=== PATIENT | female | born 1940 | race African-American/Black ===

== ENCOUNTER 2016-08-05 23:06 | Inpatient (IN) | payer BC ==
--- NOTE | ~2016-08-05 | CN ---
Consultation Report [facility] [address] [facility] [place]. [address] NAME: GEETA NICOLE : 44 STATUS : ADM IN [facility]#: [id number] AGE: 76 ADM/REG DATE : 08/06/16 MR#: [id number] REPORT SERV DATE: 08/07/16 DICTATED BY: RAKESH BOWMAN DATE: 08/06/16 REPORT STATUS : Draft TRANSCRIBED BY: MODL DATE: 08/06/16 CARDIOLOGY CONSULT DATE OF CONSULTATION: REASON FOR CONSULTATION: Acute on chronic systolic heart failure. HISTORY OF PRESENT ILLNESS: Ms. Nicole is a 76-year-old female with a chronic nonischemic cardiomyopathy, LVEF 25%, and ICD in situ who has been re-admitted with acute on chronic systolic heart failure. She is discharged from the hospital several weeks ago and actually spent some time in rehab. Only 4-5 days at home, she had recurrent lower extremity edema, abdominal distention, and dyspnea. She does have a history of aortic valve stenosis status post transcatheter aortic valve replacement. Last echo in January showed preserved EF, stable TAVR, and moderate mitral and tricuspid regurgitation. She has obstructive sleep apnea and is compliant with CPAP. She has been treated with IV Bumex and is feeling better. She was hypotensive on arrival to the ER, and her losartan has been held. She is now feeling better with less shortness of breath. She has had no chest pain. She denies palpitations or syncope. She has had no ICD shocks. REVIEW OF SYSTEMS: Pertinent positives and negatives as outlined above, all else negative. PAST MEDICAL HISTORY: 1. Chronic systolic heart failure. 2. Nonischemic cardiomyopathy, LVEF 25%. 3. ICD in situ. 4. Aortic stenosis status post transcatheter aortic valve replacement. 5. Moderate mitral and tricuspid regurgitation. 6. Obesity. 7. Obstructive sleep apnea. 8. Hypertension. 9. Chronic kidney disease stage 3. 10.Left bundle branch block. MEDICATIONS: Current home medications are: 1. Losartan 50 mg daily. 2. Torsemide 40 mg twice daily. 3. Potassium supplementation. 4. Aspirin 81 mg daily. 5. Tessalon Perles. 6. Celexa. 7. Vistaril as directed. 8. Synthroid 125 mcg daily. 9. Multivitamin daily. Consultation Report [facility] [address] [place]. [address] NAME: GEETA NICOLE : 42 STATUS : ADM IN PAT#: [id number] AGE: 76 ADM/REG DATE : 08/06/16 MR#: [id number] REPORT SERV DATE: 08/07/16 DICTATED BY: RAKESH BOWMAN DATE: 08/06/16 REPORT STATUS : Draft TRANSCRIBED BY: MODL DATE: 08/06/16 10.Trazodone at bedtime as needed. 11.Zocor 80 mg at bedtime. ALLERGIES: ALLERGIES INCLUDE PENICILLIN WHICH CAUSES HIVES. SOCIAL HISTORY: She does not use tobacco products, consume alcohol, or use illegal drugs. FAMILY HISTORY: No significant family history of premature CAD, cardiomyopathy, or sudden . PHYSICAL EXAMINATION: VITALS: Temperature is afebrile, pulse is 80, respirations 16, blood pressure is 110/60. GENERAL: Well-developed female who is currently resting in bed in no acute distress. HEENT: Sclerae anicteric, mucous membranes moist and without lesions. NECK: No jugular venous distention. No hepatojugular reflux, carotid upstrokes 2+ and symmetric, there are no carotid or subclavian bruit. LUNGS: Mildly decreased breath sounds throughout. No wheezes or crackles. CARDIOVASCULAR: Regular with distant S1 and S2. No audible S3. There is a 1/6-2/6 systolic ejection murmur at the left sternal border without radiation, no parasternal lift. ABDOMEN: Obese, soft and nontender. Bowel sounds positive and normoactive. No hepatomegaly, no masses, no abdominal bruit. PULSES: Radial and dorsalis pedis pulses 2+ and symmetric. EXTREMITIES: Warm with 3+ bilateral lower extremity edema. SKIN: No clubbing or cyanosis, no rashes or lesions. IMPRESSION: 1. Acute on chronic systolic heart failure. 2. Nonischemic cardiomyopathy, EF 25%. 3. ICD in situ. 4. Aortic stenosis status post TAVR. 5. Moderate mitral tricuspid regurgitation. 6. Obesity. 7. Obstructive sleep apnea. 8. Hypertension. 9. Chronic kidney disease stage 3. PLAN: I agree with plans for IV Bumex drip for Ms. Nicole for the next 24 hours. Increased at 1 mg for 6 hours and then back to 0.5 mg to complete the 24-hour course. Close followup of electrolytes. Last echo January 2016, repeat echo pending. Question need to add metolazone to torsemide once she is off IV Bumex. Continue statin and aspirin as prescribed. ARB held due to presenting with hypotension. AEA/MODL Consultation Report [facility] [address] [place]. [address] NAME: GEETA NICOLE : 42 STATUS : ADM IN PAT#: [id number] AGE: 76 ADM/REG DATE : 08/06/16 MR#: [id number] REPORT SERV DATE: 08/07/16 DICTATED BY: RAKESH BOWMAN. DATE: 08/06/16 REPORT STATUS : Draft TRANSCRIBED BY: SHANNON DATE: 08/06/16 Rakesh Bowman M.D. / [id number] CC: Nataly Bill M.D.
--- NOTE | ~2016-08-05 | DS ---
Discharge Summary [facility] [address] [place]. [address] NAME: GEETA NICOLE : 44 STATUS : DIS IN PAT#: [id number] AGE: 76 ADM/REG DATE : 08/06/16 MR#: [id number] REPORT SERV DATE: 08/17/16 DICTATED BY: LION BROOKS DATE: 08/16/16 REPORT STATUS : Draft TRANSCRIBED BY: MODL DATE: 08/16/16 ADMISSION DATE: 08/06/2016 DISCHARGE DATE: 08/16/2016 DISCHARGE DIAGNOSES: 1. Cor pulmonale. 2. Acute on chronic systolic congestive heart failure. With an ejection fraction of 25%. 3. Nonischemic cardiomyopathy. 4. Cardiogenic shock, currently resolved. 5. History of aortic valve replacement. 6. Automatic implantable cardioverter defibrillator in the past. 7. Obstructive sleep apnea. 8. Morbid obesity. 9. Hypotension, mainly related to cardiogenic disease. 10.Pulmonary hypertension with cor pulmonale in the past. 11.Hypothyroidism. 12.History of left carotid stenosis. 13.History of right upper extremity deep venous thrombosis. 14.History of colon polyps. INVASIVE PROCEDURES DONE DURING THIS HOSPITALIZATION: None. CONSULTATIONS DURING THIS HOSPITALIZATION: Rakesh Ravi M.D. and Gilberto Livingston M.D., Ph.D, F.A.C.C. Of Cardiology. BRIEF HISTORY OF PRESENT ILLNESS: The patient is a 76-year-old white female, triaged in the emergency room on 08/05/2016 at 1959 hours for fluid buildup. The patient presented with massive volume overload, particularly affecting the legs and the hips as well as the abdomen, so she was admitted. For detailed history and physical exam, please see note dictated by Dr. Micah Payne on 08/06/2016. HOSPITAL COURSE: After being admitted to the hospital, this patient was in the intermediate care unit. Initially, seen by Dr. Perez and then transferred to the service of Dr. Fabrizio Cooney. Please refer to interim summary dictated by Dr. Cooney on 08/14/2016. I took over this patient's care on 08/15/2016. This patient was doing relatively well. She did have some hypotension, but that has been managed with midodrine. Cardiology has okayed her midodrine in the face of her nonischemic cardiomyopathy and hypotension. Her blood pressure has been in the 90s systolic to one teens systolic and that has been acceptable. This patient has no symptoms from her hypotension. Her kidney function has stabilized as well. We need to continue her diuretics, Bumex 2 mg in the morning and 1 mg in the evening as well as Aldactone. This has been explained to the patient. Her thyroid medications have been the same and has not been changed. I discussed her care with Dr. Livingston and he agrees that this patient can be discharged and followed up in the outpatient setting. Home health will be set up as well. This patient continues to remain stable otherwise and is being discharged in stable condition. Discharge Summary [address] [place]. [address] NAME: GEETA NICOLE : 44 STATUS : DIS IN PAT#: [id number] AGE: 76 ADM/REG DATE : 08/06/16 MR#: [id number] REPORT SERV DATE: 08/17/16 DICTATED BY: LION BROOKS DATE: 08/16/16 REPORT STATUS : Draft TRANSCRIBED BY: SHANNON DATE: 08/16/16 DISCHARGE DISPOSITION: Home. DISCHARGE ACTIVITY: As tolerated with home health and physical therapy. DISCHARGE DIET: Low sodium, 1800-calorie [employer] diet. DISCHARGE MEDICATIONS: Midodrine 2.5 mg three times daily, Aldactone 25 mg once daily, Bumex 2 mg in the morning and 1 mg once in the afternoon, Coreg 6.25 mg twice daily, aspirin 81 mg once daily, Celexa 20 mg once daily, trazodone 50 mg once at bedtime, levothyroxine 125 mcg once daily, multivitamins one tablet daily, losartan 25 mg one tablet daily, potassium 20 mEq once daily, simvastatin 80 mg once at bedtime, Vistaril 50 mg to 100 mg every six hours p.r.n. for itching, Tessalon Perles 100 mg three times daily p.r.n. for cough, and Zyrtec 10 mg once daily. DISCHARGE FOLLOWUP: With Dr. Gilberto Livingston in three to four weeks, with Dr. Dipesh Martinez in one week. More than 35 minutes spent planning this patient's discharge, reconciling medications, writing prescriptions, discussing hospital care, and follow up with the patient and documenting this discharge. NICOLE/SHANNON Lion Brooks M.D. / [id number] CC: Nataly Beck M.D. Wesley S. Thompson, DO
--- NOTE | ~2016-08-05 | IDS ---
Interim Discharge Summary [facility] [address] [place]. [address] NAME: GEETA NICOLE : 44 STATUS : ADM IN PAT#: [id number] AGE: 76 ADM/REG DATE : 08/06/16 MR#: [id number] REPORT SERV DATE: 08/14/16 DICTATED BY: TAMICA MCKEON DATE: 08/14/16 REPORT STATUS : Draft TRANSCRIBED BY: MODAniket DATE: 08/14/16 ADMISSION DATE: 08/06/2016 DISCHARGE DATE: Date of interim discharge summary as well as progress note is going to be 08/14/2016. SUBJECTIVE: The patient wants to go home, but is anxiously awaiting further euvolemia. OBJECTIVE: VITAL SIGNS: 120/65, 95% on room air, 20 respirations from 18, 94 pulse, 97.6 temperature. GENERAL: No acute distress. HEENT: PERRLA. No scleral icterus. CARDIOVASCULAR: Regular S1, S2. 1/6 systolic murmur, left sternal border. ABDOMEN: Obese, soft, nontender, nondistended. EXTREMITIES: About 1+ pitting edema bilaterally. NEUROLOGIC: GCS 15. A and O x4. LABORATORY DATA: Today, she has a white count that is 4.4 from 5.4, hemoglobin 11.3 from 11.4, platelets are 175,000 from 172,000. Sodium 147, potassium 3.6, chloride 98, bicarb 31, creatinine 1.41 from 1.59 from 1.62, sugar is going to be 98. BNP 1151 from 1544. ASSESSMENT AND PLAN: A 76-year-old female with known history of nonischemic cardiomyopathy, LVEF 25%, ICD in situ. Known history of aortic stenosis, status post TAVR, moderate mitral regurgitation, tricuspid regurgitation, obesity, obstructive sleep apnea, current chronic kidney disease 3, left bundle-branch block, and hypertension. The patient comes in with acute on chronic systolic heart failure. She was discharged several weeks prior to coming in. Went to rehab. She was only four to five days at home, then had recurrent lower extremity edema, abdominal distention, shortness of breath. Placed on IV Bumex drip. Her losartan was held initially due to hypotension. She was diuresed very effectively on Bumex drip to Bumex to IV q.8. She has been negative 1 to 2 L every single day while being on Milrinone drip with reduction of Milrinone drip. We will defer to [facility] and their expertise when the patient is ready for discharge. I did educate the patient extensively on 2-g sodium restricted diet, avoiding fried foods, not adding salt to her diet. The patient had midodrine with some nonsustained ventricular tachycardia, midodrine for her hypotension with low EF, low cardiac output. Evaluate for any other anasarca associated etiology. She has very little proteinuria. Her liver does not suggest any hepatitis more likely just pure heart failure. Does not appear to have any sepsis or hypotension. As a result, she was placed on beta-blockade for nonsustained ventricular tachycardia. The patient was added on with Spiriva for her clinical chronic obstructive pulmonary disease. Could consider trying to discontinue the midodrine prior to discharge to see if the patient would tolerate lack of midodrine and blood pressure support as that can result in nonsustained ventricular tachycardia arrhythmia risk. See rest of my orders. All questions were answered. It took well over 30 minutes to do. Interim Discharge Summary [address] [place]. [address] NAME: GEETA NICOLE : 42 STATUS : ADM IN [facility]#: [id number] AGE: 76 ADM/REG DATE : 08/06/16 MR#: [id number] REPORT SERV DATE: 08/14/16 DICTATED BY: TAMICA MCKEON DATE: 08/14/16 REPORT STATUS : Draft TRANSCRIBED BY: SHANNON DATE: 08/14/16 DOTTY/SHANNON Tamica Mckeon DO / [id number] CC: DO Dipesh Patel M.D.
--- NOTE | ~2016-08-05 | HP ---
History And Physical [place] [id number] [facility] [place]. [address] NAME: GEETA NICOLE : 42 STATUS : ADM IN [facility]#: [id number] AGE: 76 ADM/REG DATE : 08/06/16 MR#: [id number] REPORT SERV DATE: 08/06/16 DICTATED BY: JULIEN HERR DATE: 08/06/16 REPORT STATUS : Draft TRANSCRIBED BY: MODL DATE: 08/06/16 DATE OF ADMISSION: 08/06/2016 CHIEF COMPLAINT: A 76-year-old female, presenting with massive volume overload. HISTORY OF PRESENT ILLNESS: The patient's history was obtained through careful interview with the patient and sister, coupled with review of [facility] and [facility] medical records. The patient over the last several weeks has had massive volume overload particularly affecting her legs with a tight painful lower extremity edema extending into her hips and also causing distention of her abdomen with abdominal wall edema. She has been given increased dose of her outpatient diuretics, but with no help. She describes leg and abdominal wall pain related to swelling. But her main pain has been a bedsore in her sacrum and aching quality, 5/10 severity. When she was last hospitalized earlier in 2017, she had severe volume overload, but also developed hypotension necessitating a central line and pressors, but also had to be intubated and according to the patient and family, it was quite dramatic hospital stay. She was discharged for rehabilitation the [facility] and she has only been home about 1/2 weeks from there. She has had a cough productive of a slight light sputum. She has had wheezing, but she denies any dyspnea on exertion. She does have orthopnea with difficulty breathing at night times. Her sinuses have been draining a "brown" discharge. She has had good urine flow. No change of bowel habit. No fevers or chills. No dizziness. REVIEW OF SYSTEMS: Otherwise 14-point review of systems was obtained and was negative. PAST MEDICAL HISTORY: 1. Systolic congestive heart failure, considered nonischemic cardiomyopathy with ejection fraction of 25%, followed by Dr. Livingston. 2. Pulmonary hypertension with cor pulmonale. 3. Chronic kidney disease, stage III, baseline creatinine of 1.4 to 1.8. 4. Sacral decubitus ulcer. 5. Urinary tract infection, previously with Pseudomonas. 6. Hypothyroidism. 7. Hypotension, chronically. 8. Aortic valve replacement. 9. AICD/pacer placement for ventricular tachycardia. 10.Obstructive sleep apnea, on CPAP. 11.Morbid obesity with body mass index of 55. History And Physical [address] [place]. [address] NAME: GEETA NICOLE : 42 STATUS : ADM IN [facility]#: [id number] AGE: 76 ADM/REG DATE : 08/06/16 MR#: [id number] REPORT SERV DATE: 08/06/16 DICTATED BY: JULIEN HERR DATE: 08/06/16 REPORT STATUS : Draft TRANSCRIBED BY: SHANNON DATE: 08/06/16 12.Left carotid stenosis. 13.Positive RUTHIE with 1 to 320 titer nucleolar. 14.Right upper extremity DVT. 15.Colon polyps, seen by Dr. Emery. PAST SURGICAL HISTORY: 1. Aortic valve replacement. 2. AICD/pacer placement. 3. Hysterectomy. 4. Cholecystectomy. 5. Bilateral knee surgery. ALLERGIES: PENICILLIN. SOCIAL HISTORY: Drinks occasional alcohol. No tobacco abuse. She is a . Lives alone. She has two sons. 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 She is a [employer]. FAMILY HISTORY: No known familiar pattern of cardiac disease. CURRENT MEDICATIONS: Include aspirin 81 mg daily, Tessalon Perles, Zyrtec 10 mg as needed, Celexa 20 mg daily, Vistaril p.r.n., Synthroid 125 mcg daily, Cozaar 50 mg p.o. daily, multivitamin daily, potassium 20 mEq daily, Zocor 80 mg daily, Demadex 40 mg p.o. b.i.d., trazodone 50 mg p.o. at bedtime. PHYSICAL EXAMINATION: VITAL SIGNS: Temperature 97.5, pulse 90, blood pressure 116/71, but has dropped to as low as 85/49 here in the emergency department, respiratory rate 16, O2 saturation 91% on room air. GENERAL: A chronically ill-appearing female, in slight distress secondary to discomfort from volume overload. HEENT: Pupils equal, round, and reactive to light. No conjunctival pallor. No scleral icterus. Nares are patent. Oropharynx is clear of obstruction. Moist mucous membranes. NECK: Trachea midline. No thyromegaly. LYMPH: No cervical lymphadenopathy. No supraclavicular lymphadenopathy. RESPIRATORY: Mild wet crackles at the base of lungs. No overt dense rales. No wheezes. The patient has a labored respiratory effort however. CARDIOVASCULAR: Regular rate and rhythm. Paced on the monitor. No murmurs, rubs, or gallops. The patient has massive anasarca with deeply tight pitting edema of lower extremities extending all the way up into the hips and pelvis area. She also has pitting edema of her abdominal wall. Abdomen is quite distended by exam, also a central pattern of morbid obesity, nontender throughout however. No hepatosplenomegaly is appreciated. DERMATOLOGICAL: Warm and dry extremities. No pallor. No cyanosis. PSYCHIATRIC: Normal affect. Good mood. Alert and oriented x3. LABORATORY DATA: Brain natriuretic peptide 3202. Troponin 0.05. INR 1.4. White blood count 4.7, hemoglobin 11, hematocrit 35, platelets 148. MCV of 100.9. Sodium 142, potassium 3.4, chloride 101, bicarb 30, BUN 30, creatinine 1.81, glucose 107. History And Physical [address] [address] NAME: GEETA NICOLE : 42 STATUS : ADM IN [facility]#: [id number] AGE: 76 ADM/REG DATE : 08/06/16 MR#: [id number] REPORT SERV DATE: 08/06/16 DICTATED BY: JULIEN HERR DATE: 08/06/16 REPORT STATUS : Draft TRANSCRIBED BY: SHANNON DATE: 08/06/16 STUDIES: 1. Chest x-ray by my own evaluation shows cardiomegaly, pulmonary vascular congestion. 2. EKG by my own evaluation shows atrial ventricular pacing. ASSESSMENT AND PLAN: 1. Cor pulmonale exacerbation with systolic congestive heart failure exacerbation. Ejection fraction of 25%. Recheck an echocardiogram. Place on IV Bumex drip. Hold ARB and beta-mehrdad secondary to hypotension. The patient had such a severe presentation during her last hospitalization including intubation and shock that I believe an initial admit to the [facility] is appropriate. 2. Shock. Blood pressure stable now at 116/71, but drops to 85/49, approximately and the patient reports being very sensitive to diuretics. We will hold ARB. Try midodrine scheduled doses and admit to the IMCU initially. 3. Aortic valve replacement. Check an echocardiogram. 4. Pacemaker. We will interrogate. 5. Obstructive sleep apnea. Continue CPAP. 6. Sacral decubitus ulcer, turn q.2 hours. Obtain a Wound Care consult. 7. Morbid obesity. Body mass index of 55. KPL/MODL Julien Herr M.D. / [id number] CC: River Perez M.D. Dipesh Martinez M.D. Gilberto Livingston M.D., Ph.D, F.A.C.C.
[2016-08-05 21:06] LABS: BASOPHILS 1.1 %; BASOPHILS ABSOLUTE 0.05 10/3/uL (0.0-0.16); EOSINOPHILS 5.2 %; EOSINOPHILS ABSOLUTE 0.24 10/3/uL (0.0-0.53); ER CBC TAT 0 Hrs 05 Mins; HEMOGLOBIN 11.5 g/dL (12.0-16.0); IMMATURE GRANULOCYTES 0.2 %; IMMATURE GRANULOCYTES ABSOLUTE 0.01 10/3/uL (0.0-0.11); LYMPHOCYTES 31.8 %; LYMPHOCYTES ABSOLUTE 1.48 10/3/uL (0.67-4.30); MEAN CORPUS HGB CONC 33.1 g/dL (32.0-36.0); MEAN CORPUSCULAR HEMOGLOB 33.4 pg (26.0-34.0); MEAN CORPUSCULAR VOLUME 100.9 fL (80-100); MEAN PLATELET VOLUME 10.2 fL (9.2-13.0); MONOCYTES 11.8 %; MONOCYTES ABSOLUTE 0.55 10/3/uL (0.21-1.20); NEUTROPHILS 49.9 %; NEUTROPHILS ABSOLUTE 2.33 10/3/uL (2.02-8.40); RED CELL COUNT 3.44 10/6/uL (4.0-5.6); WHITE BLOOD CELLS 4.7 10/3/uL (4.5-10.5)
[2016-08-05 21:07] LABS: HEMATOCRIT 34.7 % (36.0-48.0); MANUAL DIFF NO %; PLATELET COUNT 148 10/3/uL (150-400)
[2016-08-05 21:14] LABS: INTERNATIONAL NORMAL RATI 1.4 UNITS (-); PROTIME (NOT ORD) 17.3 SEC (12.0-14.5)
[2016-08-05 21:21] LABS: BUN (BLOOD UREA NITROGEN) 30 MG/DL (6-23); CALCIUM, SERUM 9.3 MG/DL (8.5-10.4); CHLORIDE, SERUM 101 MMOL/L (96-112); CO2 (CARBON DIOXIDE) 30 MMOL/L (24-34); CREATININE 1.81 MG/DL (0.55-1.02); GFR AFRICAN AMERICAN 31 ML/MIN (>=60); GFR NON AFRICAN AMERICAN 27 ML/MIN (>=60); GLUCOSE, SERUM 107 MG/DL (60-99); POTASSIUM, SERUM 3.4 MMOL/L (3.5-5.3); SODIUM, SERUM 142 MMOL/L (135-148)
[2016-08-05 21:22] LABS: CHEST PAIN PROFILE TAT 0 Hrs 21 Mins; TROPONIN I 0.05 NG/ML (<0.05)
[~2016-08-05 23:06] MED LIST: ASAB PO; CALTRA600D PO; CELEXA20 PO; CO Q-1050 MG PO; COREG12 PO; COREG25 PO; COREG6 PO; COZ50 PO; DEMA20 PO; FLEXERIL5 MG PO; GLUCPH8 PO; IRON325 MG PO; KLONO5 PO; KLOR-CON M2020 MEQ PO; KLOR-CON20 MEQ PO; LEVOTHROID150 MCG PO; LEVOTHROID88 MCG PO; LEVOTHYROXIN150 MCG PO; LEVOTHYROXIN50 MCG PO; MULTIVITAMI1 PO; NEUR300 PO; NORCO1 TA1 PO; PLAVIX PO; SYN125 PO; TRAZ50 PO; VIST50 PO; VITAMIN D1000 UNI1 PO; VITRON-C; ZESTORETIC1 TA1 PO; ZOCOR40 PO; ZOCOR80 MG PO
[2016-08-05] MEDS ORDERED: TESS PO (23:32)
[2016-08-05] MEDS ORDERED: ZYRTEC ALLGY10 MG PO (23:36)
[2016-08-06 05:44] LABS: BASOPHILS 0.9 %; BASOPHILS ABSOLUTE 0.04 10/3/uL (0.0-0.16); EOSINOPHILS 6.9 %; EOSINOPHILS ABSOLUTE 0.32 10/3/uL (0.0-0.53); HEMATOCRIT 33.7 % (36.0-48.0); IMMATURE GRANULOCYTES 0.2 %; IMMATURE GRANULOCYTES ABSOLUTE 0.01 10/3/uL (0.0-0.11); LYMPHOCYTES 27.9 %; LYMPHOCYTES ABSOLUTE 1.29 10/3/uL (0.67-4.30); MEAN CORPUS HGB CONC 32.6 g/dL (32.0-36.0); MEAN CORPUSCULAR HEMOGLOB 32.7 pg (26.0-34.0); MEAN CORPUSCULAR VOLUME 100.3 fL (80-100); MEAN PLATELET VOLUME 10.1 fL (9.2-13.0); MONOCYTES ABSOLUTE 0.51 10/3/uL (0.21-1.20); NEUTROPHILS 53.1 %; NEUTROPHILS ABSOLUTE 2.45 10/3/uL (2.02-8.40); PLATELET COUNT 152 10/3/uL (150-400); RBC DISTRIBUTION WIDTH 15.2 % (12.0-16.0); RED CELL COUNT 3.36 10/6/uL (4.0-5.6); WHITE BLOOD CELLS 4.6 10/3/uL (4.5-10.5)
[2016-08-06 05:49] LABS: MANUAL DIFF NO %
[2016-08-06 05:52] LABS: INTERNATIONAL NORMAL RATI 1.5 UNITS (-); PARTIAL THROMBO TIME 32.9 SEC (22.5-37.2); PROTIME (NOT ORD) 17.7 SEC (12.0-14.5)
[2016-08-06 06:08] LABS: A/G RATIO 0.7 (0.7-1.9); ALKALINE PHOSPHATASE 135 U/L (45-117); BUN (BLOOD UREA NITROGEN) 30 MG/DL (6-23); CALCIUM, SERUM 9.5 MG/DL (8.5-10.4); CHLORIDE, SERUM 103 MMOL/L (96-112); CO2 (CARBON DIOXIDE) 28 MMOL/L (24-34); CPK (IF ELEVATED MB BANDS) 147 U/L (0-200); GFR AFRICAN AMERICAN 34 ML/MIN (>=60); GFR NON AFRICAN AMERICAN 29 ML/MIN (>=60); GLOBULIN 4.3 G/DL (2.5-4.1); GLUCOSE, SERUM 111 MG/DL (60-99); POTASSIUM, SERUM 3.1 MMOL/L (3.5-5.3); SGOT(AST) 41 U/L (5-40); SGPT(ALT) 24 U/L (5-65); SODIUM, SERUM 144 MMOL/L (135-148); TOTAL BILIRUBIN 1.8 MG/DL (0-1.2); TOTAL PROTEIN 7.3 G/DL (6.0-8.5); TROPONIN I 0.05 NG/ML (<0.05)
[2016-08-06 09:51] LABS: FREE T4 1.11 NG/DL (0.76-1.46)
[2016-08-07 05:04] LABS: BASOPHILS 1.1 %; BASOPHILS ABSOLUTE 0.05 10/3/uL (0.0-0.16); EOSINOPHILS 5.7 %; EOSINOPHILS ABSOLUTE 0.27 10/3/uL (0.0-0.53); HEMATOCRIT 35.5 % (36.0-48.0); HEMOGLOBIN 11.7 g/dL (12.0-16.0); IMMATURE GRANULOCYTES 0.2 %; IMMATURE GRANULOCYTES ABSOLUTE 0.01 10/3/uL (0.0-0.11); LYMPHOCYTES 25.6 %; LYMPHOCYTES ABSOLUTE 1.22 10/3/uL (0.67-4.30); MEAN CORPUSCULAR HEMOGLOB 33.3 pg (26.0-34.0); MEAN CORPUSCULAR VOLUME 101.1 fL (80-100); MONOCYTES 14.1 %; MONOCYTES ABSOLUTE 0.67 10/3/uL (0.21-1.20); NEUTROPHILS 53.3 %; NEUTROPHILS ABSOLUTE 2.54 10/3/uL (2.02-8.40); PLATELET COUNT 162 10/3/uL (150-400); RBC DISTRIBUTION WIDTH 15.2 % (12.0-16.0); RED CELL COUNT 3.51 10/6/uL (4.0-5.6); WHITE BLOOD CELLS 4.8 10/3/uL (4.5-10.5)
[2016-08-07 05:10] LABS: MANUAL DIFF NO %
[2016-08-07 05:18] LABS: BUN (BLOOD UREA NITROGEN) 27 MG/DL (6-23); CALCIUM, SERUM 9.3 MG/DL (8.5-10.4); CHLORIDE, SERUM 104 MMOL/L (96-112); CO2 (CARBON DIOXIDE) 30 MMOL/L (24-34); CREATININE 1.67 MG/DL (0.55-1.02); GFR AFRICAN AMERICAN 35 ML/MIN (>=60); GFR NON AFRICAN AMERICAN 30 ML/MIN (>=60); GLUCOSE, SERUM 111 MG/DL (60-99); POTASSIUM, SERUM 3.3 MMOL/L (3.5-5.3); SODIUM, SERUM 144 MMOL/L (135-148)
[2016-08-08 08:39] LABS: BUN (BLOOD UREA NITROGEN) 25 MG/DL (6-23); CALCIUM, SERUM 9.4 MG/DL (8.5-10.4); CHLORIDE, SERUM 101 MMOL/L (96-112); CO2 (CARBON DIOXIDE) 33 MMOL/L (24-34); CREATININE 1.64 MG/DL (0.55-1.02); GFR AFRICAN AMERICAN 35 ML/MIN (>=60); GFR NON AFRICAN AMERICAN 30 ML/MIN (>=60); GLUCOSE, SERUM 98 MG/DL (60-99); POTASSIUM, SERUM 3.8 MMOL/L (3.5-5.3); SODIUM, SERUM 144 MMOL/L (135-148)
[2016-08-08 08:43] LABS: PHOSPHORUS, SERUM 3.2 MG/DL (2.5-4.5)
[2016-08-08 16:28] LABS: PROCALCITONIN 0.05 ng/mL (<0.5)
[2016-08-09 07:33] LABS: ALKALINE PHOSPHATASE 105 U/L (45-117); BUN (BLOOD UREA NITROGEN) 26 MG/DL (6-23); CALCIUM, SERUM 9.5 MG/DL (8.5-10.4); CHLORIDE, SERUM 102 MMOL/L (96-112); CO2 (CARBON DIOXIDE) 31 MMOL/L (24-34); CREATININE 1.58 MG/DL (0.55-1.02); DIRECT BILIRUBIN 1.3 MG/DL (0.0-0.4); GFR AFRICAN AMERICAN 37 ML/MIN (>=60); GFR NON AFRICAN AMERICAN 32 ML/MIN (>=60); GLUCOSE, SERUM 90 MG/DL (60-99); INDIRECT BILIRUBIN(NOT ORDER) 1.7 MG/DL (0.1-0.9); PHOSPHORUS, SERUM 2.9 MG/DL (2.5-4.5); POTASSIUM, SERUM 3.5 MMOL/L (3.5-5.3); SGOT(AST) 33 U/L (5-40); SGPT(ALT) 21 U/L (5-65); SODIUM, SERUM 143 MMOL/L (135-148); TOTAL PROTEIN 7.1 G/DL (6.0-8.5)
[2016-08-09 10:38] LABS: CREATININE RANDOM UR 46.9 MG/DL; UR PROTEIN/CREAT RATIO 0.3 (< 0.2)
[2016-08-11 07:54] LABS: BASOPHILS ABSOLUTE 0.06 10/3/uL (0.0-0.16); EOSINOPHILS 6.4 %; EOSINOPHILS ABSOLUTE 0.39 10/3/uL (0.0-0.53); HEMATOCRIT 34.4 % (36.0-48.0); HEMOGLOBIN 11.4 g/dL (12.0-16.0); IMMATURE GRANULOCYTES 0.2 %; IMMATURE GRANULOCYTES ABSOLUTE 0.01 10/3/uL (0.0-0.11); LYMPHOCYTES 26.5 %; LYMPHOCYTES ABSOLUTE 1.62 10/3/uL (0.67-4.30); MEAN CORPUS HGB CONC 33.1 g/dL (32.0-36.0); MEAN CORPUSCULAR HEMOGLOB 33.4 pg (26.0-34.0); MEAN CORPUSCULAR VOLUME 100.9 fL (80-100); MEAN PLATELET VOLUME 9.9 fL (9.2-13.0); MONOCYTES 13.7 %; MONOCYTES ABSOLUTE 0.84 10/3/uL (0.21-1.20); NEUTROPHILS 52.2 %; PLATELET COUNT 183 10/3/uL (150-400); RBC DISTRIBUTION WIDTH 15.5 % (12.0-16.0); RED CELL COUNT 3.41 10/6/uL (4.0-5.6); WHITE BLOOD CELLS 6.1 10/3/uL (4.5-10.5)
[2016-08-11 07:56] LABS: MANUAL DIFF NO %
[2016-08-11 08:06] LABS: CALCIUM, SERUM 9.6 MG/DL (8.5-10.4); CHLORIDE, SERUM 102 MMOL/L (96-112); CO2 (CARBON DIOXIDE) 34 MMOL/L (24-34); CREATININE 1.59 MG/DL (0.55-1.02); GFR AFRICAN AMERICAN 37 ML/MIN (>=60); GFR NON AFRICAN AMERICAN 32 ML/MIN (>=60); GLUCOSE, SERUM 101 MG/DL (60-99); PHOSPHORUS, SERUM 2.4 MG/DL (2.5-4.5); POTASSIUM, SERUM 3.7 MMOL/L (3.5-5.3); SODIUM, SERUM 142 MMOL/L (135-148)
[2016-08-11 08:08] LABS: BUN (BLOOD UREA NITROGEN) 21 MG/DL (6-23)
[2016-08-12 06:27] LABS: BUN (BLOOD UREA NITROGEN) 23 MG/DL (6-23); CALCIUM, SERUM 8.8 MG/DL (8.5-10.4); CHLORIDE, SERUM 100 MMOL/L (96-112); CO2 (CARBON DIOXIDE) 35 MMOL/L (24-34); CREATININE 1.62 MG/DL (0.55-1.02); GFR AFRICAN AMERICAN 36 ML/MIN (>=60); GFR NON AFRICAN AMERICAN 31 ML/MIN (>=60); GLUCOSE, SERUM 97 MG/DL (60-99); PHOSPHORUS, SERUM 2.8 MG/DL (2.5-4.5); POTASSIUM, SERUM 3.4 MMOL/L (3.5-5.3); SODIUM, SERUM 141 MMOL/L (135-148)
[2016-08-13 07:20] LABS: BASOPHILS 1.1 %; BASOPHILS ABSOLUTE 0.06 10/3/uL (0.0-0.16); EOSINOPHILS 9.3 %; HEMATOCRIT 34.1 % (36.0-48.0); HEMOGLOBIN 11.4 g/dL (12.0-16.0); IMMATURE GRANULOCYTES 0.2 %; IMMATURE GRANULOCYTES ABSOLUTE 0.01 10/3/uL (0.0-0.11); LYMPHOCYTES 28.2 %; LYMPHOCYTES ABSOLUTE 1.51 10/3/uL (0.67-4.30); MEAN CORPUS HGB CONC 33.4 g/dL (32.0-36.0); MEAN CORPUSCULAR HEMOGLOB 32.9 pg (26.0-34.0); MEAN CORPUSCULAR VOLUME 98.6 fL (80-100); MEAN PLATELET VOLUME 9.5 fL (9.2-13.0); MONOCYTES 11.8 %; MONOCYTES ABSOLUTE 0.63 10/3/uL (0.21-1.20); NEUTROPHILS 49.4 %; NEUTROPHILS ABSOLUTE 2.64 10/3/uL (2.02-8.40); PLATELET COUNT 172 10/3/uL (150-400); RBC DISTRIBUTION WIDTH 15.1 % (12.0-16.0); RED CELL COUNT 3.46 10/6/uL (4.0-5.6); WHITE BLOOD CELLS 5.4 10/3/uL (4.5-10.5)
[2016-08-13 07:23] LABS: MANUAL DIFF NO %
[2016-08-13 07:32] LABS: BUN (BLOOD UREA NITROGEN) 21 MG/DL (6-23); CALCIUM, SERUM 9.1 MG/DL (8.5-10.4); CHLORIDE, SERUM 97 MMOL/L (96-112); CO2 (CARBON DIOXIDE) 31 MMOL/L (24-34); CREATININE 1.59 MG/DL (0.55-1.02); GFR AFRICAN AMERICAN 37 ML/MIN (>=60); GFR NON AFRICAN AMERICAN 32 ML/MIN (>=60); GLUCOSE, SERUM 94 MG/DL (60-99); PHOSPHORUS, SERUM 2.9 MG/DL (2.5-4.5); POTASSIUM, SERUM 3.5 MMOL/L (3.5-5.3); SODIUM, SERUM 139 MMOL/L (135-148)
[2016-08-14 08:05] LABS: BASOPHILS 1.1 %; BASOPHILS ABSOLUTE 0.05 10/3/uL (0.0-0.16); EOSINOPHILS 10.9 %; EOSINOPHILS ABSOLUTE 0.48 10/3/uL (0.0-0.53); HEMATOCRIT 35.1 % (36.0-48.0); HEMOGLOBIN 11.3 g/dL (12.0-16.0); LYMPHOCYTES 30.1 %; LYMPHOCYTES ABSOLUTE 1.32 10/3/uL (0.67-4.30); MEAN CORPUS HGB CONC 32.2 g/dL (32.0-36.0); MEAN CORPUSCULAR HEMOGLOB 32.8 pg (26.0-34.0); MEAN PLATELET VOLUME 9.8 fL (9.2-13.0); MONOCYTES 17.3 %; MONOCYTES ABSOLUTE 0.76 10/3/uL (0.21-1.20); NEUTROPHILS 40.6 %; NEUTROPHILS ABSOLUTE 1.78 10/3/uL (2.02-8.40); PLATELET COUNT 175 10/3/uL (150-400); RBC DISTRIBUTION WIDTH 15.1 % (12.0-16.0); RED CELL COUNT 3.45 10/6/uL (4.0-5.6); WHITE BLOOD CELLS 4.4 10/3/uL (4.5-10.5)
[2016-08-14 08:06] LABS: MEAN CORPUSCULAR VOLUME 101.7 fL (80-100)
[2016-08-14 09:51] LABS: BUN (BLOOD UREA NITROGEN) 19 MG/DL (6-23); CALCIUM, SERUM 9.1 MG/DL (8.5-10.4); CHLORIDE, SERUM 98 MMOL/L (96-112); CO2 (CARBON DIOXIDE) 31 MMOL/L (24-34); CREATININE 1.41 MG/DL (0.55-1.02); GFR AFRICAN AMERICAN 42 ML/MIN (>=60); GFR NON AFRICAN AMERICAN 37 ML/MIN (>=60); GLUCOSE, SERUM 98 MG/DL (60-99); POTASSIUM, SERUM 3.6 MMOL/L (3.5-5.3); SODIUM, SERUM 140 MMOL/L (135-148)
[2016-08-15 06:37] LABS: BASOPHILS 1.1 %; BASOPHILS ABSOLUTE 0.05 10/3/uL (0.0-0.16); EOSINOPHILS 9.5 %; EOSINOPHILS ABSOLUTE 0.42 10/3/uL (0.0-0.53); HEMATOCRIT 35.4 % (36.0-48.0); HEMOGLOBIN 11.5 g/dL (12.0-16.0); IMMATURE GRANULOCYTES 0.2 %; IMMATURE GRANULOCYTES ABSOLUTE 0.01 10/3/uL (0.0-0.11); LYMPHOCYTES 30.6 %; LYMPHOCYTES ABSOLUTE 1.36 10/3/uL (0.67-4.30); MANUAL DIFF NO %; MEAN CORPUS HGB CONC 32.5 g/dL (32.0-36.0); MEAN CORPUSCULAR HEMOGLOB 32.6 pg (26.0-34.0); MEAN CORPUSCULAR VOLUME 100.3 fL (80-100); MEAN PLATELET VOLUME 10.1 fL (9.2-13.0); MONOCYTES 11.3 %; NEUTROPHILS 47.3 %; PLATELET COUNT 194 10/3/uL (150-400); RBC DISTRIBUTION WIDTH 14.9 % (12.0-16.0); RED CELL COUNT 3.53 10/6/uL (4.0-5.6); WHITE BLOOD CELLS 4.4 10/3/uL (4.5-10.5)
[2016-08-15 06:51] LABS: ALBUMIN 3.1 G/DL (3.5-5.0); CALCIUM, SERUM 9.3 MG/DL (8.5-10.4); CHLORIDE, SERUM 99 MMOL/L (96-112); CO2 (CARBON DIOXIDE) 31 MMOL/L (24-34); CREATININE 1.54 MG/DL (0.55-1.02); GFR AFRICAN AMERICAN 38 ML/MIN (>=60); GFR NON AFRICAN AMERICAN 33 ML/MIN (>=60); GLUCOSE, SERUM 99 MG/DL (60-99); PHOSPHORUS, SERUM 2.8 MG/DL (2.5-4.5); POTASSIUM, SERUM 3.6 MMOL/L (3.5-5.3); SODIUM, SERUM 138 MMOL/L (135-148)
[2016-08-15 06:55] LABS: BUN (BLOOD UREA NITROGEN) 23 MG/DL (6-23)
[2016-08-16 07:06] LABS: BASOPHILS 1.3 %; BASOPHILS ABSOLUTE 0.06 10/3/uL (0.0-0.16); EOSINOPHILS 7.6 %; EOSINOPHILS ABSOLUTE 0.36 10/3/uL (0.0-0.53); HEMATOCRIT 36.6 % (36.0-48.0); IMMATURE GRANULOCYTES 0.2 %; IMMATURE GRANULOCYTES ABSOLUTE 0.01 10/3/uL (0.0-0.11); LYMPHOCYTES 37.7 %; LYMPHOCYTES ABSOLUTE 1.79 10/3/uL (0.67-4.30); MEAN CORPUS HGB CONC 32.8 g/dL (32.0-36.0); MEAN CORPUSCULAR HEMOGLOB 32.6 pg (26.0-34.0); MEAN CORPUSCULAR VOLUME 99.5 fL (80-100); MEAN PLATELET VOLUME 10.5 fL (9.2-13.0); MONOCYTES 10.1 %; MONOCYTES ABSOLUTE 0.48 10/3/uL (0.21-1.20); NEUTROPHILS 43.1 %; NEUTROPHILS ABSOLUTE 2.05 10/3/uL (2.02-8.40); PLATELET COUNT 206 10/3/uL (150-400); RBC DISTRIBUTION WIDTH 14.8 % (12.0-16.0); RED CELL COUNT 3.68 10/6/uL (4.0-5.6); WHITE BLOOD CELLS 4.8 10/3/uL (4.5-10.5)
[2016-08-16 07:07] LABS: MANUAL DIFF NO %
[2016-08-16 07:19] LABS: ALBUMIN 3.3 G/DL (3.5-5.0); BUN (BLOOD UREA NITROGEN) 26 MG/DL (6-23); CALCIUM, SERUM 9.1 MG/DL (8.5-10.4); CHLORIDE, SERUM 96 MMOL/L (96-112); CO2 (CARBON DIOXIDE) 29 MMOL/L (24-34); CREATININE 1.72 MG/DL (0.55-1.02); GFR AFRICAN AMERICAN 33 ML/MIN (>=60); GFR NON AFRICAN AMERICAN 29 ML/MIN (>=60); GLUCOSE, SERUM 108 MG/DL (60-99); PHOSPHORUS, SERUM 3.3 MG/DL (2.5-4.5); POTASSIUM, SERUM 3.9 MMOL/L (3.5-5.3); SODIUM, SERUM 136 MMOL/L (135-148)
[2016-08-16] MEDS ORDERED: BUM2 PO (10:56)
[2016-08-16] MEDS ORDERED: COREG6 PO (10:57)
[2016-08-16] MEDS ORDERED: SPIRO25 PO (10:59)
[2016-08-16] MEDS ORDERED: PROAM25 PO (10:59)
[2017-02-05] MEDS ORDERED: WELLSR150 PO (17:11)
[2017-02-05] MEDS ORDERED: MIRALAX POWDER1 PKT PO (17:12)
[2017-02-05] MEDS ORDERED: Z100 PO (17:13)
[2017-02-05] MEDS ORDERED: Z5 PO (17:13)
[2017-02-05] MEDS ORDERED: KLOR-CON M2020 MEQ PO (17:15)
[2017-02-05] MEDS ORDERED: TESS PO (17:17)
[2017-02-05] MEDS ORDERED: METANX PO (17:17)
== END 2016-08-16 13:09 | disposition home health service (06) | DRG 291 ==
LOC: ER 23:06 → IMCU 08-06 00:14 → 6NO 08-07 16:20
PROVIDERS: Emergency Medicine; Hospitalist; Internal Medicine; Internal Medicine Cardiovascular Disease
PROC: 4B02XTZ Measurement of Cardiac Defibrillator, External Approach (ICD-10-PCS; principal; 2016-08-06)
DX: I13.0 Hypertensive heart and chronic kidney disease with heart failure and stage 1 through stage 4 chronic kidney disease, or unspecified chronic kidney disease (principal); L89.153 Pressure ulcer of sacral region, stage 3; R57.0 Cardiogenic shock; I47.2 Ventricular tachycardia; Z68.43 Body mass index [BMI] 50.0-59.9, adult; N18.3 Chronic kidney disease, stage 3 (moderate); I27.2 Other secondary pulmonary hypertension; I42.8 Other cardiomyopathies; I95.89 Other hypotension; E66.01 Morbid (severe) obesity due to excess calories; I50.23 Acute on chronic systolic (congestive) heart failure; N39.0 Urinary tract infection, site not specified; I08.1 Rheumatic disorders of both mitral and tricuspid valves; J44.9 Chronic obstructive pulmonary disease, unspecified; Z95.810 Presence of automatic (implantable) cardiac defibrillator; Z88.0 Allergy status to penicillin; Z86.010 Personal history of colon polyps; I65.22 Occlusion and stenosis of left carotid artery; Z86.718 Personal history of other venous thrombosis and embolism; E03.9 Hypothyroidism, unspecified; Z90.710 Acquired absence of both cervix and uterus; Z95.2 Presence of prosthetic heart valve; Z79.82 Long term (current) use of aspirin; Z77.22 Contact with and (suspected) exposure to environmental tobacco smoke (acute) (chronic)
CPT/HCPCS: 71010; 71020; 80048; 80053; 80069; 80076; 81001; 82533; 82550; 82570; 82962; 83735; 83880; 84100; 84145; 84156; 84439; 84443; 84484; 85025; 85610; 85730; 87641; 93005; 94660; 97110-GP; 97116-GP; 97162-GP; 97166-GO; 97530-GO; 97530-GP; 97535-GO; 99291; A9270-GY; J2260

== ENCOUNTER 2016-10-07 23:42 | Inpatient (IN) | payer BC ==
--- NOTE | ~2016-10-07 | CN ---
Consultation Report [facility] [id number] [facility] [address] [place]. [address] NAME: GEETA NICOLE : 44 STATUS : ADM Tamera PAT#: [id number] AGE: 76 ADM/REG DATE : 10/07/16 MR#: [id number] REPORT SERV DATE: 10/08/16 DICTATED BY: DAVID RICHARDSON DATE: 10/08/16 REPORT STATUS : Draft TRANSCRIBED BY: MODL DATE: 10/08/16 CARDIOLOGY CONSULTATION DATE OF CONSULTATION: REASON FOR CONSULTATION: Congestive heart for exacerbation. HISTORY OF PRESENT ILLNESS: The patient is a 76-year-old female with known nonischemic cardiomyopathy with previous ejection fraction approximately 25%. The patient was last admitted in 07/2016 for CHF exacerbation. She reports that since discharge, she continued to have some lower extremity edema and dyspnea. She reports in the last several days, she has developed progressive lower extremity edema, increased weight gain, and dyspnea. She reports dyspnea with activities of daily living. She denies chest pain, palpitations, presyncope, or syncope. She denies fevers chills. It appears she is relatively noncompliant with daily weights with monitoring oral intake etc. PAST MEDICAL HISTORY: 1. Nonischemic cardiomyopathy. 2. Chronic kidney disease. 3. Obstructive sleep apnea with variable compliance with CPAP. 4. History of aortic stenosis, status post transcatheter aortic valve replacement. 5. Pulmonary hypertension. 6. Hypothyroidism. 7. Carotid artery disease. 8. Previous placement of implantable defibrillator. 9. Moderate mitral and tricuspid regurgitation. 10.Chronic left bundle branch block. ALLERGIES: PENICILLIN WITH HIVES. SOCIAL HISTORY: The patient denies tobacco, alcohol, or illicit drug use. FAMILY HISTORY: Noncontributory. REVIEW OF SYSTEMS: Negative for all organ systems except per the history of present illness. PHYSICAL EXAMINATION: VITAL SIGNS: Blood pressure 180/66, pulse 72, respirations 12 and unlabored, saturating 95% on room air, weight 130 kg. GENERAL: Obese, elderly female no acute distress. HEENT: Normal. NECK: Supple, no JVD or bruit, normal carotid upstroke bilaterally, no thyromegaly. LUNGS: Clear to auscultation and percussion. No wheezes, rales or rhonchi. No use of Consultation Report [address] [place]. [address] NAME: GEETA NICOLE : 44 STATUS : ADM Tamera PAT#: [id number] AGE: 76 ADM/REG DATE : 10/07/16 MR#: [id number] REPORT SERV DATE: 10/08/16 DICTATED BY: DAVID RICHARDSON DATE: 10/08/16 REPORT STATUS : Draft TRANSCRIBED BY: MODL DATE: 10/08/16 accessory muscles. CARDIOLOGY: Regular rhythm, normal S1, S2, no thrill, no rubs or gallops, normal PMI. There is grade 2/6 early peaking systolic murmur appreciated best along the left sternal border. ABDOMEN: Bowel sounds positive, soft, nontender, and obese. No masses or aortic bruits. No hepatosplenomegaly or hepatojugular reflux. EXTREMITIES: There is 2+ pitting edema at the ankles bilaterally. Normal pulses. No clubbing or cyanosis. SKIN: Warm and dry, no significant rash. NEUROLOGIC: Alert and oriented x 3. Appropriate mood. IMPRESSION: [id number]-ow-sludtwd systolic congestive heart failure exacerbation - likely related to noncompliance. Agree with intravenous diuresis for the next 24 to 48 hours. Repeat echocardiogram ordered by hospitalists. Last echocardiogram just performed in July. Heart failure medications are being continued. Due to renal insufficiency, on no angiotensin receptor mehrdad nor MAKENZIE inhibitor. Continue carvedilol. Not on spironolactone due to chronic kidney disease. Thank you for the opportunity to see the patient in consultation. We will continue to follow the patient with you. CSL/MODL Ian Richardson M.D. / [id number] CC: Gilberto Lucas Jr, MD Patrick Rhyne, M.D.
--- NOTE | ~2016-10-07 | DS ---
Discharge Summary [facility] [address] [place]. [address] NAME: GEETA NICOLE : 44 STATUS : DIS IN PAT#: [id number] AGE: 76 ADM/REG DATE : 10/07/16 MR#: [id number] REPORT SERV DATE: 10/12/16 DICTATED BY: ROSEANNE HENSON DATE: 10/11/16 REPORT STATUS : Draft TRANSCRIBED BY: MODL DATE: 10/11/16 ADMISSION DATE: 10/07/2016 DISCHARGE DATE: 10/11/2016 DISCHARGE DIAGNOSES: 1. Acute on chronic heart failure. 2. Left and right ventricular failure with known ischemic cardiomyopathy. 3. Body mass index 55. 4. Chronic kidney disease, cardiorenal probable. 5. Sleep apnea. The patient is compliant with the CPAP. CONSULTANTS: Gilberto Livingston M.D., Ph.D, F.A.C.C. HISTORY OF PRESENT ILLNESS: This is a 76-year-old obese female patient, who comes to the hospital with fluid overload. Please see dictated H and P. HOSPITAL COURSE: Please see dictated consultation note from Dr. Richardson. The patient was hospitalized for heart failure at this time again. The patient experienced recurrent volume overload issue. She was saying she was taking Bumex 0.5 mg in the morning time and the other half if her weight gains over 3 pounds. The patient was treated with intravenous Bumex and she did respond well. She has been discussed regarding her diet and medical compliance. We are going to make her home health nurse visit as more often than once a week and her diuretic regimen is changed to Bumex 2 mg in the morning time and 1 mg in the afternoon. Overall, had improvement and she is stabilized as she is lying flat without any dyspnea and she is eager to go home, and we are going to setup the home health nurse frequent visit. DISCHARGE MEDICATIONS: 1. Bumex 2 mg in the morning time and 1 mg in the afternoon time. 2. Continue allopurinol once a day. 3. Coreg 12.5 mg once a day. 4. Celexa 20 mg once a day. 5. Levothyroxine 125 mcg once a day. 6. Multivitamin once a day. 7. Zocor 80 mg once a day. 8. Trazodone once a day. 9. Zyrtec once a day. DISPOSITION: The patient is discharged to home in stable condition. Needs to follow up with Nephrology Associate and Dr. Livingston. TIME SPENT: More than 30 minutes in discharge coordination and patient education. DICTATED BY: Roseanne Henson M.D. Discharge Summary [address] [place]. [address] NAME: GEETA NICOLE : 44 STATUS : DIS IN PAT#: [id number] AGE: 76 ADM/REG DATE : 10/07/16 MR#: [id number] REPORT SERV DATE: 10/12/16 DICTATED BY: ROSEANNE HENSON DATE: 10/11/16 REPORT STATUS : Draft TRANSCRIBED BY: SHANNON DATE: 10/11/16 PEGGY/SHANNON Roseanne Henson M.D. / [id number] CC: Nataly Keller M.D.
--- NOTE | ~2016-10-07 | HP ---
History And Physical [facility] [address] [place]. [address] NAME: GEETA NICOLE : 44 STATUS : ADM Tamera PAT#: [id number] AGE: 76 ADM/REG DATE : 10/07/16 MR#: [id number] REPORT SERV DATE: 10/08/16 DICTATED BY: VIKAS ZAMORA DATE: 10/08/16 REPORT STATUS : Draft TRANSCRIBED BY: MODL DATE: 10/08/16 DATE OF ADMISSION: 10/07/2016 CHIEF COMPLAINT: Shortness of breath; swelling in her lower extremities, her abdomen, and all over her body. HISTORY OF PRESENT ILLNESS: This is a 76-year-old female with a history of pulmonary hypertension, nonischemic cardiomyopathy with AICD, obstructive sleep apnea with questionable compliance, chronic kidney disease, aortic valve replacement, and other medical problems, who presents to the emergency room at [facility] with the above mentioned complaint. History is obtained from the patient and a friend, who is at bedside. We also reviewed data available on the [employer] system. According to the patient, she had been in the usual state of health even after her discharge from here sometime in May, but she had ongoing issues with shortness of breath, dyspnea with exertion due to her cardiomyopathy and chronic systolic congestive heart failure with an ejection fraction of only 25%. In addition to this, she has pulmonary hypertension contributing to her dyspnea with exertion. In the last few days, she had become more so and is quite unable to perform even activities of daily living. They finally decided to come to the emergency room to be evaluated. In the emergency room, initial workup revealed she had acute on chronic systolic congestive heart failure along with acute cor pulmonale, and Hospitalist Service admitted her for further evaluation and treatment. At the time of my evaluation, she denied any chest pain, palpitations, or orthopnea. She had no cough, hemoptysis, night sweats, or weight loss. She has not had any recent falls or loss of consciousness. No history of fevers, chills, nausea, vomiting, or diarrhea. No other history of recent travel or exposures other than those mentioned above. PAST MEDICAL HISTORY: As above. She also has, as mentioned, an AICD placement; chronic kidney disease; obstructive sleep apnea; aortic valve replacement; pulmonary arterial hypertension; and hypothyroidism. She has history of right upper extremity DVT as well and left carotid stenosis. SOCIAL HISTORY: She does not smoke, drink, or use recreational drugs. FAMILY HISTORY: Noncontributory. MEDICATIONS: At home were reviewed by me in the chart today and reordered by me. REVIEW OF SYSTEMS: As in history of present illness. All other systems were reviewed in detail and are quite unremarkable. PHYSICAL EXAMINATION: History And Physical [address] [place]. [address] NAME: GEETA NICOLE : 44 STATUS : ADM Tamera PAT#: [id number] AGE: 76 ADM/REG DATE : 10/07/16 MR#: [id number] REPORT SERV DATE: 10/08/16 DICTATED BY: VIKAS ZAMORA DATE: 10/08/16 REPORT STATUS : Draft TRANSCRIBED BY: SHANNON DATE: 10/08/16 GENERAL: This is a pleasant 76-year-old, not in any acute distress. HEENT: Her head is atraumatic, normocephalic. She is alert, awake, oriented to time, place, and person. Her pupils are equal, reacting to light and accommodating. External ocular muscles are intact. Membranes are moist and pink. Sclerae are nonicteric. NECK: Supple with no jugular venous distention, lymphadenopathy, or thyromegaly. LUNGS: Auscultation of her lungs revealed few expiratory wheezes, but bilateral crackles as well. Trachea appeared to be in midline. HEART: Auscultation of her heart revealed regular rate and rhythm. ABDOMEN: Soft, nontender. Bowel sounds are present. There is edema in the wall as well. EXTREMITIES: Showed bilateral pitting lower extremity edema with no cyanosis or clubbing. NEUROLOGIC: Grossly intact. No focal sensory or motor deficits. Higher functions appeared intact. VITAL SIGNS: Her vital signs today showed a temperature of 98.4, pulse 75, respirations 22 a minute, blood pressure was 105/73, oxygen saturations were 98%, breathing 3 L of oxygen via nasal cannula. LABORATORY DATA: Reviewed on the [employer] system showed a sodium of 141, potassium 3.7, chloride 102, and CO2 of 38. BUN was 59 with a creatinine of 2.29 and glucose was 120. Her troponin today was 0.03. Urinalysis was not done today. We will do it. Films of the chest x-ray were reviewed by me on the PACS today and interpreted by me. Today's films were compared to previous films available as well. There is cardiomegaly seen along with bilateral pulmonary edema. A 12-lead EKG done in emergency room was reviewed and interpreted by me. There is ventricular paced rhythm. IMPRESSION: 1. Acute on chronic systolic congestive heart failure with an ejection fraction of 25%. 2. Acute cor pulmonale. 3. Nonischemic cardiomyopathy. 4. AICD. 5. Chronic kidney disease. 6. Left carotid stenosis. 7. Obstructive sleep apnea. 8. Atrial fibrillation. 9. Pulmonary arterial hypertension. 10.Hypothyroidism. 11.Right upper extremity deep vein thrombosis in the past. PLAN: We will admit the patient to the Hospitalist Service with cardiac telemetry for a 24- hour observation period. We will start her on IV diuretics cautiously along with close monitoring of her output and daily weights. We will give her a dose of Diamox for her alkalosis as well. We will also check her TSH and meanwhile, continue replacement therapy. We will continue all other treatments and medications at this time. DICTATION ENDS HERE. History And Physical [address] [address] NAME: GEETA NICOLE : 44 STATUS : ADM Tamera PAT#: [id number] AGE: 76 ADM/REG DATE : 10/07/16 MR#: [id number] REPORT SERV DATE: 10/08/16 DICTATED BY: VIKAS ZAMORA DATE: 10/08/16 REPORT STATUS : Draft TRANSCRIBED BY: SHANNON DATE: 10/08/16 /SHANNON Vikas Zamora M.D. / [id number] CC: Gilberto Lucas Jr, MD Patrick Rhyne, M.D.
[~2016-10-07 23:42] MED LIST changes: +BUM2 PO; +PROAM25 PO; +SPIRO25 PO; +TESS PO; +ZYRTEC ALLGY10 MG PO
[2016-10-08 00:47] LABS: BASOPHILS 1.1 %; BASOPHILS ABSOLUTE 0.05 10/3/uL (0.0-0.16); EOSINOPHILS 8.4 %; EOSINOPHILS ABSOLUTE 0.37 10/3/uL (0.0-0.53); HEMATOCRIT 35.1 % (36.0-48.0); HEMOGLOBIN 11.4 g/dL (12.0-16.0); IMMATURE GRANULOCYTES 0.2 %; IMMATURE GRANULOCYTES ABSOLUTE 0.01 10/3/uL (0.0-0.11); LYMPHOCYTES 23.5 %; LYMPHOCYTES ABSOLUTE 1.04 10/3/uL (0.67-4.30); MEAN CORPUS HGB CONC 32.5 g/dL (32.0-36.0); MEAN CORPUSCULAR HEMOGLOB 32.6 pg (26.0-34.0); MEAN CORPUSCULAR VOLUME 100.3 fL (80-100); MEAN PLATELET VOLUME 10.7 fL (9.2-13.0); MONOCYTES 14.2 %; MONOCYTES ABSOLUTE 0.63 10/3/uL (0.21-1.20); NEUTROPHILS 52.6 %; NEUTROPHILS ABSOLUTE 2.33 10/3/uL (2.02-8.40); PLATELET COUNT 155 10/3/uL (150-400); RBC DISTRIBUTION WIDTH 15.6 % (12.0-16.0); WHITE BLOOD CELLS 4.4 10/3/uL (4.5-10.5)
[2016-10-08 00:48] LABS: MANUAL DIFF NO %
[2016-10-08 00:55] LABS: INTERNATIONAL NORMAL RATI 1.5 UNITS (-); PARTIAL THROMBO TIME 31.4 SEC (22.5-37.2); PROTIME (NOT ORD) 17.6 SEC (12.0-14.5)
[2016-10-08 01:04] LABS: CALCIUM, SERUM 9.6 MG/DL (8.5-10.4); CHEST PAIN PROFILE TAT 0 Hrs 21 Mins; CHLORIDE, SERUM 102 MMOL/L (96-112); GFR AFRICAN AMERICAN 24 ML/MIN (>=60); GFR NON AFRICAN AMERICAN 20 ML/MIN (>=60); GLUCOSE, SERUM 120 MG/DL (60-99); POTASSIUM, SERUM 3.7 MMOL/L (3.5-5.3); SODIUM, SERUM 141 MMOL/L (135-148); TROPONIN I 0.03 NG/ML (<0.05)
[2016-10-08 01:05] LABS: BUN (BLOOD UREA NITROGEN) 59 MG/DL (6-23); CO2 (CARBON DIOXIDE) 38 MMOL/L (24-34); CREATININE 2.29 MG/DL (0.55-1.02)
[2016-10-08] MEDS ORDERED: LEVOTHYROXIN125 MCG PO (02:21)
[2016-10-08] MEDS ORDERED: COREG3 PO (02:22)
[2016-10-08] MEDS ORDERED: HALF81 PO (02:22)
[2016-10-08] MEDS ORDERED: MULTIVITAMI1 PO (02:23)
[2016-10-08] MEDS ORDERED: ZOCOR80 MG PO (02:23)
[2016-10-08] MEDS ORDERED: TRAZ50 PO (02:25)
[2016-10-08] MEDS ORDERED: CELEXA20 PO (02:26)
[2016-10-08] MEDS ORDERED: ATARAX50B PO (02:27)
[2016-10-08] MEDS ORDERED: ZYRTEC ALLGY10 MG PO (02:27)
[2016-10-08] MEDS ORDERED: Z300 (02:28)
[2016-10-08 07:24] LABS: PHOSPHORUS, SERUM 3.1 MG/DL (2.5-4.5)
[2016-10-08 10:09] LABS: ASCORBIC ACID (UR NOT ORDER) NEG (NEG); BILIRUBIN, URINE NEGATIVE (NEG); KETONE, URINE NEGATIVE (NEG); LEUKOCYTE ESTERASE(NOT OR TRACE (NEG); WBC (NOT ORDERED) (RFLEX) 2 (0-5)
[2016-10-09 05:51] LABS: BUN (BLOOD UREA NITROGEN) 56 MG/DL (6-23); CALCIUM, SERUM 9.5 MG/DL (8.5-10.4); CHLORIDE, SERUM 105 MMOL/L (96-112); CO2 (CARBON DIOXIDE) 30 MMOL/L (24-34); CREATININE 2.12 MG/DL (0.55-1.02); GFR AFRICAN AMERICAN 26 ML/MIN (>=60); GFR NON AFRICAN AMERICAN 22 ML/MIN (>=60); GLUCOSE, SERUM 108 MG/DL (60-99); POTASSIUM, SERUM 3.7 MMOL/L (3.5-5.3); SODIUM, SERUM 137 MMOL/L (135-148)
[2016-10-10 05:58] LABS: BUN (BLOOD UREA NITROGEN) 52 MG/DL (6-23); CALCIUM, SERUM 9.1 MG/DL (8.5-10.4); CHLORIDE, SERUM 104 MMOL/L (96-112); CO2 (CARBON DIOXIDE) 30 MMOL/L (24-34); CREATININE 2.17 MG/DL (0.55-1.02); GFR AFRICAN AMERICAN 25 ML/MIN (>=60); GFR NON AFRICAN AMERICAN 22 ML/MIN (>=60); GLUCOSE, SERUM 105 MG/DL (60-99); POTASSIUM, SERUM 3.5 MMOL/L (3.5-5.3); SODIUM, SERUM 142 MMOL/L (135-148)
[2016-10-11 04:38] LABS: BUN (BLOOD UREA NITROGEN) 51 MG/DL (6-23); CALCIUM, SERUM 9.4 MG/DL (8.5-10.4); CHLORIDE, SERUM 105 MMOL/L (96-112); CO2 (CARBON DIOXIDE) 31 MMOL/L (24-34); CREATININE 2.19 MG/DL (0.55-1.02); GFR AFRICAN AMERICAN 25 ML/MIN (>=60); GFR NON AFRICAN AMERICAN 21 ML/MIN (>=60); GLUCOSE, SERUM 102 MG/DL (60-99); POTASSIUM, SERUM 3.6 MMOL/L (3.5-5.3); SODIUM, SERUM 141 MMOL/L (135-148)
[2016-10-11] MEDS ORDERED: BUM2 PO (09:50)
[2016-10-11] MEDS ORDERED: Z300 PO (09:50)
[2016-10-11] MEDS ORDERED: BUM1 PO (09:51)
[2017-02-05] MEDS ORDERED: WELLSR150 PO (17:11)
[2017-02-05] MEDS ORDERED: MIRALAX POWDER1 PKT PO (17:12)
[2017-02-05] MEDS ORDERED: Z100 PO (17:13)
[2017-02-05] MEDS ORDERED: Z5 PO (17:13)
[2017-02-05] MEDS ORDERED: KLOR-CON M2020 MEQ PO (17:15)
[2017-02-05] MEDS ORDERED: METANX PO (17:17)
[2017-02-05] MEDS ORDERED: TESS PO (17:17)
== END 2016-10-11 12:29 | disposition home health service (06) | DRG 291 ==
LOC: ER 23:42 → 5NO 23:59
PROVIDERS: Hospitalist; Internal Medicine
DX: I13.0 Hypertensive heart and chronic kidney disease with heart failure and stage 1 through stage 4 chronic kidney disease, or unspecified chronic kidney disease (principal); I50.23 Acute on chronic systolic (congestive) heart failure; N18.4 Chronic kidney disease, stage 4 (severe); I27.2 Other secondary pulmonary hypertension; Z68.43 Body mass index [BMI] 50.0-59.9, adult; I48.91 Unspecified atrial fibrillation; E66.01 Morbid (severe) obesity due to excess calories; I08.1 Rheumatic disorders of both mitral and tricuspid valves; Z95.810 Presence of automatic (implantable) cardiac defibrillator; N18.9 Chronic kidney disease, unspecified; I65.22 Occlusion and stenosis of left carotid artery; G47.33 Obstructive sleep apnea (adult) (pediatric); E03.9 Hypothyroidism, unspecified; Z86.718 Personal history of other venous thrombosis and embolism; I44.7 Left bundle-branch block, unspecified; Z95.2 Presence of prosthetic heart valve
CPT/HCPCS: 71010; 80048; 81001; 82962; 83735; 83880; 84100; 84443; 84484; 85025; 85610; 85730; 93005; 96374; 99284; A9270-GY; C8929; J1120; P9047; Q9957